=== PATIENT | male | born 1980 | race Hispanic/Latino ===

== ENCOUNTER 2022-08-18 05:10 | Observation (INO) | payer BC ==
[~2022-08-18] VITALS: Ht 175.3 cm; Wt 156.3 kg
[~2022-08-18 05:10] MED LIST: AUGMENTIN 875-1 EACH PO; GUIATUSS AC SY120 ML PO; SUDAFED 12-HOU120 MG PO; TYLENOL WITH C1 EACH PO
[2022-08-18] MEDS ORDERED: QSYMIA 7.5 MG-1 EACH PO (05:24)
[2022-08-18 08:56] VITALS: BP 110/64
--- NOTE | 2022-08-18 09:15 | NUR ---
PT ASSESSMENT STARTED BY CHARGE AND REPORT GIVEN. ASSESSMENT COMPLETED. PT. AND BROUGHT BLANKET. CALL LIGHT IN REACH.
[2022-08-18] MEDS ORDERED: ZYRTEC10 MG PO (10:40)
[2022-08-18] MEDS ORDERED: TOPIRAMATE25 MG PO (10:40)
[2022-08-18] MEDS ORDERED: PHENTERMINE H37.5 M1 PO (10:40)
--- NOTE | 2022-08-18 10:40 | NUR ---
MED REC COMPLETE
[2022-08-18 13:27] VITALS: BP 98/54
--- NOTE | 2022-08-18 17:00 | NUR ---
Spoke with pts and family as he is in surgery. Used the food and beverage associate as I have limited Serbian and they have limited Arabic. Per , they live in [place] in a home with 2 steps. Spouse is active and will not have any issues getting into the home. Pt does not use and DME. will do the house hold tasks while pt heals. Family are present and will drive pt if needed. They deny any financial issues. wants to know if they will dc tonight and let her know she will need to discuss this with the Dr. Let her know I will check on them tomorrow if they remain. denies any needs.
--- NOTE | 2022-08-18 17:11 | NUR ---
08/18/22 1711 Jose,Elisa 1706 PT ARRIVED TO PACU ON 6L VIA MASK, O2 SAT 94% AND RESP EVEN AND UNLABORED WITH ORAL AIRWAY IN PLACE. HOB INCREASED SLIGHTLY.
[2022-08-18 18:10] VITALS: BP 119/73
--- NOTE | 2022-08-18 18:10 | NUR ---
RECIEVED PATIENT FROM SURGERY. PT RESTING, EYES CLOSED, BREATHING EVEN AND UNLABORED. VSS. SCANT DRAINAGE AT LAP SITES X4. ARYA DRAINING SS FLUID. FAMILY AT BEDSIDE. CALL LIGHT IN REACH.
--- NOTE | 2022-08-18 18:44 | NUR ---
PLACED PT ON CPOX. SPO2 93% ON 1L, TITRATED TO 0.5L ON NC. WILL CONTIUNE TO MONITOR. PT RESTING, EYES CLOSED, BREATHING EVEN AND UNLABORED. FAMILY REMAINS AT BEDSIDE. CALL LIGHT IN REACH, FAMILY ORIENTED TO CALL LIGHT USE.
--- NOTE | 2022-08-18 19:00 | NUR ---
BEDSIDE REPORT FROM COLIN RN, PT RESTING IN BED EYES CLOSED, ALERT TO STAFF AT BEDSIDE, PT REPORTS PAIN 9/10, NO NAUSEA, SMALL AMOUNT OF DRAINAGE NOTED AT LAP SITES AND AROUND ARYA DRAIN. PT HAS GUEST X2 SITTING ON ROOM COUCH
[2022-08-18 19:05] VITALS: BP 124/79
--- NOTE | 2022-08-18 19:07 | NUR ---
POST OP ASSESSMENT COMPLETE. VSS. PT AWAKE, DROWSY, BUT EASILY AROUSED. SPO2 93% ON 0.5L NC, TITRATED TO RA, CPOX IN PLACE. NO NEW CHANGES WITH LAP SITES. PT COMPLAINS OF 9/10 BACK AND ABD PAIN. DENIES NAUSEA. CALL LIGHT IN REACH. FAMILY REMAINS AT BEDSIDE.
--- NOTE | 2022-08-18 19:17 | NUR ---
PRN PAIN MEDICATION ADMINISTERED FOR 12/18 BACK/ABD PAIN (PER EMAR). DENIES FURTHER NEEDS. CALL LIGHT IN REACH
[2022-08-18 20:03] VITALS: BP 123/73
--- NOTE | 2022-08-18 20:14 | NUR ---
PT RESTING IN BED DROWSY BUT EASILY AROUSABLE, HE REPORTS PAIN MEDICAITONS HELPED BUT PAIN IS COMING BACK NOW, NOTED PT OS 87-90% OXYGEN SATURATION, PT PLACED TO 1L N.C. FOR NOW. ARYA DRAIN STRIPED, LAP SITE WNL, SMALL AMOUNT OF DRAINAGE S/S. ICE PACK FOR PT AND MANAGE PAIN.
--- NOTE | 2022-08-18 20:34 | NUR ---
pt reports no nausea at this time, he does not feel like drinking or eating yet, v/s, hs medications administered with education. pt conversing appropriately
[2022-08-18 21:11] VITALS: BP 115/67
--- NOTE | 2022-08-18 21:12 | NUR ---
IN ROOM TO COLLECT POST-OP VS, VSS. CPOX IN PLACE, pt HAS 1.5LNC IN PLACE, RR EVEN AND UNLABORED. NO DISTRESS NOTED. FAMILY IN ROOM, CALL LIGHT IN REACH. PRIMARY RN HEAVENLY UPDATED.
--- NOTE | 2022-08-18 21:52 | NUR ---
ROUNDING IN PT ROOM TO ADMINISTER SCHEDULED ABX, PT IS NOTED TO BE SNORING, OXYGEN SATURATION 96% ON 1L N.C., PT ALERT TO NAME AND AGREES TO MEDICATION ADMINISTRATION. GUEST SLEEPING IN RECLINER AT THIS TIME. PT HAS NO COMPLAINTS OF PAIN OR NAUSEA AT THIS TIME.
--- NOTE | 2022-08-18 22:23 | NUR ---
PT ALERT TO RN AT BEDSIDE, HE REPORTS HE IS FEELING OK, NO COMPLAINT OF PAIN OR NAUSEA.
--- NOTE | 2022-08-18 23:04 | NUR ---
PT CALLED NURSES STATION TO REPORT HE FELT THE NEED TO VOID, THIS RN INTO PT ROOM TO ASSIST PT UP TO BATHROOM PT TOLERATED ACTIVITY WELL, VOIDED 650ML. PT AMBULATED AROUND THE ROOM FOR 15MIN. THEN BACK TO BED, HE REPORTS INCREASED PAIN WITH ACTIVITY. PT TOLERATING WATER AND JELLO, HE REPORTS PAIN 8/10, 2MG IV MORPHINE PRN, AND ONE TAB PERCOCET ADMINISTERED, PT ALERT AND ORIENTED, AT BEDSIDE, PROVIDED SNACK FOR HER AND WARM BLANKETS, WARM BLANKETS FOR PT, ALSO ASSISTED WITH HIM PUTTING ON HIS CLEAN UNDERWARE FROM HOME. NEW GOWN AND NEW BED LINENS, PT NOW ON ROOM AIR 95% OXYGEN SATURATION WITH ACTIVITY. PT IS COOPERATIVE WITH ALL CARE
--- NOTE | 2022-08-19 00:04 | NUR ---
PT ALERT SITTING UP IN BED USING CELL PHONE REQUESTED MORE JELLO AND PUDDING NO NAUSEA, NO COMPLAINT OF PAIN, PT SPOUSE SITTING IN RECLINER.
--- NOTE | 2022-08-19 01:40 | NUR ---
PT ALERT AND ORIENTED, HE REPORTS PAIN IS WELL CONTROLLED AT THIS TIME. NO NAUSEA. ON ROOM AIR
[2022-08-19 01:41] VITALS: BP 131/72
--- NOTE | 2022-08-19 03:13 | NUR ---
PT CALLED TO USE BATHROOM, PT ASSISTED OUT OF BED, HE AMBULATES INDEPENDENT TO BATHROOM VOIDED 650ML OF URINE. TOLERATED ACTIVITY WELL. REPORTS INCREASE PAIN WITH ACTIVITY, 09/17, PT ADMINSTERED 1 TAB PERCOCET TO TITRATE TO FULL DOSE WELL MOTRIN. PT REMAINS ON ROOM AIR, OXYGEN SATURATION 94% WITH ACTIVITY. FRESH ICE WATER PROVIDED, NEW ICE PACK, PILLOW TO HOLD OVER ABD WHEN COUGH. NO OTHER REQUESTS AT THIS TIME.
--- NOTE | 2022-08-19 04:15 | NUR ---
PT RESTING IN BED, ALERT AND ORIETNED, SPOUSE AT BEDSIDE. HE REPORTS PAIN WELL MANAGED, NO NAUSEA. NO NEEDS AT THIS TIME
[2022-08-19 06:11] VITALS: BP 124/69
--- NOTE | 2022-08-19 06:54 | NUR ---
PT HAS BEEN UP AMBULATING IN HIS ROOM, BACK IN BED NOW, IVF INFUSING, SCDS ON, PT ALERT, HE REPORTS PAIN WELL MANAGED AND NO NAUSEA, HE VERBLIZED HE HOPES HE WILL BE ABLE TO GO HOME TODAY.
--- NOTE | 2022-08-19 08:30 | NUR ---
REPORT RECIEVED FROM NIGHT RN AND PT CARE RESUMED. PT. REPORTS ABDOMINAL PAIN IS 4/10 AND TOLERABLE AT THIS TIME. REFUSES PRN MED. ASSESSEMENT COMPLETED. PT. TOLERATING FOOD AND DRINK AND DENIES NAUSEA. AT BEDSIDE. DENIES FURTHER NEEDS.
[2022-08-19 09:06] VITALS: BP 130/70
[2022-08-19 13:35] VITALS: BP 130/69
--- NOTE | 2022-08-19 13:43 | NUR ---
INTO ROOM, PATIENT RESTING WITH LIGHTS OFF AND DOES NOT WAKE TO VOICE. WILL FOLLOW UP WITH PATIENT AT ANOTHER TIME.
--- NOTE | 2022-08-19 14:21 | NUR ---
ARYA DRAIN EMPTIED. LAP. SITE DRESSINGS REMAIN UNCHANGED AND INTACT. PT. C/O 08/17 PAIN WITH AMBULATION. ADMIN PRN MED. DENIES FURTHER NEEDS. CALL LIGHT IN REACH.
[2022-08-19] MEDS ORDERED: ACETAMINOPHEN500 MG PO (14:55)
[2022-08-19] MEDS ORDERED: PERCOCET 10-321 EACH PO (14:55)
[2022-08-19] MEDS ORDERED: IBUPROFEN600 MG PO (14:55)
--- NOTE | 2022-08-19 15:00 | NUR ---
ALL DISCHARGE INSTRUCTIONS REVIEWED AND IV REMOVED WNL WITH CATH INTACT.
--- NOTE | 2022-08-20 11:21 | OR ---
[facility] [address], [place] [address] Signed DATE OF OPERATION: 08/18/2022 SURGEON: Celia Vargas MD PREOPERATIVE DIAGNOSES: 1. Acute calculous cholecystitis. 2. Distant history of gastric sleeve resection (Dr. Lewis, [facility]). 3. Super morbid obesity, BMI greater than 51. POSTOPERATIVE DIAGNOSES: 1. Acute calculous cholecystitis. 2. Distant history of gastric sleeve resection (Dr. Lewis, [facility]). 3. Super morbid obesity, BMI greater than 51. 4. Distal common bile duct stone with complete obstruction in the common duct. PROCEDURE: 1. Laparoscopic cholecystectomy with laparoscopic common bile duct exploration. 2. Percutaneous stone extraction (basket). 3. Surgeon-directed fluoroscopy. ANESTHESIA: General endotracheal, Tre Winkler CRNA and local 10 mL of 0.25% Marcaine with epinephrine. INDICATIONS: This 41-year-old man lives in [place], [place] and underwent a gastric sleeve resection for morbid obesity by Dr. Lewis in the [facility] in 2018. He did lose a considerable amount of weight initially down to 166 pounds. Over time, he has increased his weight now greater than 380 pounds with a BMI now of 51.4. He has been previously identified with gallstones and was advised to avoid cholecystectomy until he lost more weight. He presented to the [facility] Emergency Room today with persistent epigastric and right subcostal pain with findings consistent with acute calculous cholecystitis. His liver enzymes showed a bilirubin of 1.1, an AST of 181, ALT of 152, and alkaline phosphatase of 110. He has been fluid resuscitated, given intravenous antibiotic Ancef and is now to undergo cholecystectomy preferably by laparoscopic approach. The risk of bleeding, infection, bile duct injury, need for open procedure, need for common duct exploration were all Electronically Signed By: CELIA VARGAS MD 08/20/22 1121 PATIENT NAME: NAVDEEP LINARES OPERATIVE REPORT DATE OF : 84 REPORT #: [id number] PHYSICIAN: CELIA VARGAS MD PCP: LORI LEWIS MD REPORT IS CONFIDENTIAL AND NOT TO BE RELEASED WITHOUT AUTHORIZATION [facility] [address], [place] [address] Signed reviewed with him in detail. He understands and wished to proceed. FINDINGS: Considerable abdominal obesity was affirmed. This made the operation challenging obviously. The gallbladder was acutely inflamed. Initial cholangiogram showed complete occlusion of the distal common duct related to a single stone. A transcystic duct common duct exploration was undertaken and ultimately the single stone was extracted allowing for complete clearance of the biliary tree. Completion cholangiogram was normal. The procedure was prolonged, complicated, and difficult based on his obesity and other factors including the common duct obstruction. DESCRIPTION OF PROCEDURE: The patient was brought to the operating room, given a general endotracheal anesthetic. Preoperative antibiotic Ancef was given. Sequential compression device stockings used and heparin subcutaneously administered. The abdomen was prepared with a chlorhexidine solution and draped sterilely. An impressively large abdominal wall was noted. A supraumbilical incision was made and using an open Lokesh cannula technique, pneumoperitoneum was achieved to a level of 14 mmHg of carbon dioxide gas. Intra-abdominal inspection showed somewhat fatty infiltrated liver. Consider amount of omentum and the gallbladder was obscured at that point. Three additional trocars were placed in usual configuration in the subxiphoid, right midclavicular, and right anterior axillary line. The gallbladder was identified by manipulating the omentum and change in body position to head up left side down. The gallbladder was acutely inflamed, particularly large. The gallbladder was elevated cephalad and the infundibulum was able to be manipulated allowing for elevation of the gallbladder more fully. Using blunt electrocautery dissection, meticulous care was taken in dissecting the triangle of Calot ultimately identifying the cystic duct, which was of moderate size. A clip was applied across gallbladder cystic duct junction and a transverse choledochotomy made in the cystic duct. Using an Worthy type cholangiocatheter, intraoperative cholangiography was undertaken. Free flow of contrast was noted into the biliary tree, but abrupt step-off and lack of passage in the distal duct. Close inspection showed the meniscus highly suggestive of retained distal common duct stone. Under the circumstances and with inability for an ERCP locally and difficult to arrange regionally, a laparoscopic common duct exploration was deemed advisable. Through an another epigastric site, a taut 5 mm trocar was placed under direct visualization and manipulated into position of the cystic duct. A flexible tipped wire Electronically Signed By: CELIA VARGAS MD 08/20/22 1121 PATIENT NAME: NAVDEEP LINARES OPERATIVE REPORT DATE OF : 84 REPORT #: [id number] PHYSICIAN: CELIA VARGAS MD PCP: LORI LEWIS MD REPORT IS CONFIDENTIAL AND NOT TO BE RELEASED WITHOUT AUTHORIZATION [address] [address] Signed was passed down that trocar into the cystic duct and with various manipulations advanced fully into the duodenum. Fluoroscopic control confirmed that the wire was into the appropriate position. An ERCP balloon catheter was then passed over the wire and under direct visualization, manipulated across the ampulla. The balloon was dilated with radiocontrast, visualizing well the distal ampullary area. The catheter was deflated and withdrawn at dilation undertaken the cystic duct level as well on the possibility of flexible choledochoscopy being required. Manipulation of these instruments with extremely thick abdominal wall and intra-abdominal fatty body habitus was notable. Repeat cholangiogram was undertaken through the cystic duct showing complete flow into the biliary tree and into the duodenum without problem. Close inspection, however, showed the filling defect to be at the cystic duct, common bile duct junction. On that basis, a flexible urologic basket was manipulated into the cystic duct and down into the common duct more fully. Under fluoroscopic control, it was withdrawn and though poorly visualized. Ultimately, the stone was engaged and withdrawn through the cystic duct, clearing the duct completely. Repeat cholangiography was then undertaken showing free flow of contrast in the biliary tree with prompt emptying into the duodenum. No evidence of proximal filling defect or other issue. The stone was extracted, it was removed from the abdominal cavity. The cystic duct was triply clipped and divided and the gallbladder was then dissected free in a retrograde fashion using electrocautery. A small rent was made in the gallbladder, but no spillage of stones or bile was noted. The gallbladder was placed in an endobag and extracted through the supraumbilical port site opened on the back table and found to have innumerable 4-6 mm yellow rounded gallstones. There was no evidence of malignancy. Irrigation was undertaken in the subhepatic space. Some Marivel hemostatic agent was insufflated in the lowest portions of the area of dissection. Good hemostasis had been noted anyway. Through a right-sided trocar site, a 7 mm flat Antonio drain was placed in subhepatic space. Excess irrigation fluid was suctioned free and the trocars were removed under direct visualization showing no sign of bleeding. The infraumbilical fascial incision was reapproximated with interrupted 0 Vicryl suture as well as a running 0 PDS suture for added security. Irrigation was then taken in the wounds and skin closed with interrupted 3-0 Vicryl. A 10 mL of 0.25% Marcaine with epinephrine was injected to the trocar sites as well. The patient was ultimately extubated and transported to the recovery room in good condition having suffered no complications. Sponge, needle, and Electronically Signed By: CELIA VARGAS MD 08/20/22 1121 PATIENT NAME: NAVDEEP LINARES OPERATIVE REPORT DATE OF : 84 REPORT #: [id number] PHYSICIAN: CELIA VARGAS MD PCP: LORI LEWIS MD REPORT IS CONFIDENTIAL AND NOT TO BE RELEASED WITHOUT AUTHORIZATION [facility] [address] [place] [id number] Signed instrument counts were reported as correct x3. The operation was prolonged, complicated, and difficult on the basis of retained stones, significant obesity and so forth and lasted four times longer than normal. MD JUNG Yun/MAURISIO /[id number] cc: Troy Sow MD [place], [place] Gabriela Mazariegos MD Copies: GABRIELA MAZARIEGOS MD ~ Electronically Signed By: CELIA VARGAS MD 08/20/22 1121 PATIENT NAME: NAVDEEP LINARES OPERATIVE REPORT DATE OF : 84 REPORT #: [id number] PHYSICIAN: CELIA VARGAS MD PCP: LORI LEWIS MD REPORT IS CONFIDENTIAL AND NOT TO BE RELEASED WITHOUT AUTHORIZATION
--- NOTE | 2022-08-20 11:21 | HP ---
[facility] [address], [place] [address] Signed ADMISSION DATE: 08/18/2022 REASON FOR ADMISSION: Acute calculous cholecystitis. HISTORY OF PRESENT ILLNESS: This morbidly obese 41-year-old man lives in [facility]. He underwent gastric sleeve resection for obesity by Dr. Lewis in the [facility] in the past. He has had episodic right upper abdominal and epigastric pain symptoms and underwent a gallbladder ultrasound elsewhere, which confirmed gallstones. He was advised that he would ultimately need his gallbladder out, though no offer to do so was made apparently. He presented today to the emergency room and was evaluated by Dr. Mazariegos with complaints of persisting unrelenting epigastric and right subcostal pain. He is admitted for further evaluation and care on the basis of probable acute calculous cholecystitis. PAST MEDICAL HISTORY: Primarily notable for his gastric sleeve resection. He said he got down to 166 pounds. He is quite a bit heavier than that at this point, said to be 157 kg. He is 5 feet 9 inches tall with a BMI of 50.9. He is accompanied by his at this time; they have six children between them. He denies ongoing alcohol use, drug use, or other illicit substances. His gastric sleeve resection was in 2018. His medications from the past have included amoxicillin, pseudoephedrine and guaifenesin, but he no longer takes those medications. He does take phentermine-topiramate 7.5/46 one p.o. daily. LABORATORY STUDIES: At presentation to the emergency room showed normal CBC and Chem profile. Liver enzymes were normal as well. Bilirubin was 1.1. Urinalysis was normal. Ultrasound was performed (repeated) at [facility] at approximately 6:00 a.m., which showed gallstones and gallbladder sludge, positive sonographic Mcintyre sign, but no sign of dilated bile ducts, but diffuse fatty liver was also noted. PHYSICAL EXAMINATION: GENERAL: A very pleasant man accompanied by his . He has no evidence of systemic toxicity currently. VITAL SIGNS: Show a temperature of 97.8, a pulse of 72, blood pressure of 110/64, O2 saturation is 99% on room air. Electronically Signed By: CELIA VARGAS MD 08/20/22 1121 PATIENT NAME: NAVDEEP LINARES HISTORY AND PHYSICAL DATE OF : 84 REPORT #: [id number] PHYSICIAN: CELIA VARGAS MD PCP: LORI LEWIS MD REPORT IS CONFIDENTIAL AND NOT TO BE RELEASED WITHOUT AUTHORIZATION [facility] [address] [place], [place] [address] Signed HEENT: Trachea is midline. Mucous membranes are reasonably moist. CHEST: Shows normal respiratory excursion without cough or wheeze. ABDOMEN: Quite obese notably. He has tenderness in the epigastric and right subcostal area. EXTREMITIES: Show no clubbing, cyanosis, or edema. ASSESSMENT: The patient has acute calculous cholecystitis. His comorbidity of obesity is significant. He certainly has gained quite a bit of weight back since his gastric sleeve resection five years ago and that is a purpose for his current medication of phentermine. I discussed with him the pathophysiology of biliary disease with which he was already well familiar and recommendation of treatment to include cholecystectomy preferred by a laparoscopic approach. The risk of bleeding, infection, bile duct injury, need for open procedure and other unforeseen complications were reviewed in detail. We also discussed the possible need for common duct exploration and so on, although that is unlikely. We will try to perform surgery today so as to minimize a progression of inflammatory process, which may make surgery more difficult. He does understand that an open procedure may be required. He is admitted with IV antibiotics and so forth. DVT prophylaxis will be initiated additionally. MD JUNG Yun/FABIANL /[id number] cc: MD Dr. Troy Phillips in [facility] Electronically Signed By: CELIA VARGAS MD 08/20/22 1121 PATIENT NAME: NAVDEEP LINARES HISTORY AND PHYSICAL DATE OF : 84 REPORT #: [id number] PHYSICIAN: CELIA VARGAS MD PCP: LORI LEWIS MD REPORT IS CONFIDENTIAL AND NOT TO BE RELEASED WITHOUT AUTHORIZATION [facility] [address] [place], [place] [address] Signed Copies: GABRIELA MAZARIEGOS MD ~ Electronically Signed By: CELIA VARGAS MD 08/20/22 1121 PATIENT NAME: MILAGORSNAVDEEP P HISTORY AND PHYSICAL DATE OF : 84 REPORT #: [id number] PHYSICIAN: CELIA VARGAS MD PCP: LORI LEWIS MD REPORT IS CONFIDENTIAL AND NOT TO BE RELEASED WITHOUT AUTHORIZATION
== END 2022-08-19 15:45 | disposition home or self-care (01) ==
LOC: ED 05:10 → MS 05:12
PROVIDERS: ADMIT Surgery; ATTEND Surgery
PROC: 0FC94ZZ Extirpation of Matter from Common Bile Duct, Percutaneous Endoscopic Approach (ICD-10-PCS; 2022-08-18)
PROC: BF13YZZ Fluoroscopy of Gallbladder and Bile Ducts using Other Contrast (ICD-10-PCS; 2022-08-18)
PROC: 0FT44ZZ Resection of Gallbladder, Percutaneous Endoscopic Approach (ICD-10-PCS; principal; 2022-08-18 14:15)
DX: K80.12 Calculus of gallbladder with acute and chronic cholecystitis without obstruction (principal); E66.9 Obesity, unspecified; Z98.84 Bariatric surgery status
CPT/HCPCS: 00790; 36415; 74300; 76705; 80053; 81003; 83690; 85025; 94760; 94762; 96361; 96372; 96375; 96376; A9270; C1726; C1769; C1894; G0378; J0131; J0330; J0690; J1100; J1170; J1610; J1644; J2001; J2250; J2270; J2405; J2704; J3010; J3475; J3490; J7030; J7042; J7121; Q9967